=== PATIENT | female | born 1990 | race Caucasian/White ===

== ENCOUNTER 2016-08-07 18:20 | Emergency (ER) | payer MEDICAID ==
[~2016-08-07] VITALS: Ht 157.5 cm; Wt 77.1 kg
[2016-08-07 19:22] VITALS: BP 110/66
[2016-08-07 20:01] LABS: BASOPHILS % (AUTO) 1.2 % (0.0-2.0); EOSINOPHILS # (AUTO) 0.1 K/uL (0-0.4); EOSINOPHILS % (AUTO) 1.4 % (0.0-4.0); HEMATOCRIT 39.7 % (36-48); HEMOGLOBIN 13.2 g/dL (12.0-16.0); LYMPHOCYTES # (AUTO) 0.6 K/uL (2.5-16.5); LYMPHOCYTES % (AUTO) 13.9 % (20.5-51.1); MEAN CORPUSCULAR HEMOGLOBIN 29 pg (27-31); MEAN CORPUSCULAR HGB CONC 33 g/dL (33-37); MEAN CORPUSCULAR VOLUME 88 fL (80-94); MONOCYTES # (AUTO) 0.4 K/uL (0.8-1.0); MONOCYTES % (AUTO) 9.1 % (1.7-9.3); NEUTROPHILS % (AUTO) 74.4 % (42.2-75.2); PLATELET COUNT (AUTO) 180 K/uL (140-450); RED CELL DISTRIBUTION WIDTH 12.3 % (11.6-13.7); WHITE BLOOD COUNT (AUTO) 4.1 K/uL (4.8-10.8)
[2016-08-07 20:04] LABS: APPEARANCE,URINE CLEAR (CLEAR); BILIRUBIN,URINE NEGATIVE (NEGATIVE); BLOOD, URINE TRACE-L (NEGATIVE); COLOR,URINE YELLOW (YELLOW); LEUKOCYTE ESTERASE ,URINE 1+ (NEGATIVE); NITRITE, URINE NEGATIVE (NEGATIVE); PH,URINE 6.5 (5.0-9.0); PROTEIN,URINE NEGATIVE (NEGATIVE); UGLUCOSE NEGATIVE (NEGATIVE); UROBILINOGEN,URINE 0.2 EU/dL (0.2 - 1)
[2016-08-07 20:13] LABS: ANION GAP 10.2 (8-16); CALCIUM 8.7 mg/dL (8.5-10.1); CARBON DIOXIDE 27.5 mmol/L (21-32); CREATININE 0.8 mg/dL (0.6-1.3); POTASSIUM 3.7 mmol/L (3.5-5.1)
[2016-08-07 20:15] LABS: BACTERIA,URINE 3+ /HPF (None Seen); RBC,URINE 0-3 /HPF (0-5)
[2016-08-07 20:19] LABS: ALBUMIN 4.1 g/dL (3.4-5.0); TOTAL BILIRUBIN 0.5 mg/dL (0.0-1.0); TOTAL PROTEIN, SERUM 7.8 g/dL (6.4-8.2)
--- NOTE | 2016-08-07 23:02 | NUR ---
TO ER BED 8
--- NOTE | 2016-08-07 23:03 | NUR ---
26 Y/O HERE W/C/O ABD PAIN , NAUSEA, FEVER AND CHILLS, PAIN WITH URINATION X 5 DAYS. NO S/S OF DISTRESS NOTED AT THE MOMENT ER MD AWARE.
[2016-08-07] MEDS ORDERED: ALUMINUM HYD/MAG/SIMETHICONE 30 ML, BELLADONNA/PHENOBARBITAL 10 ML, LIDOCAINE VISCOUS 2... PO ONE ×3 (23:05)
[2016-08-07] MEDS ORDERED: ONDANSETRON 4 MG ODT PO ONE (23:05)
[2016-08-07] MEDS ORDERED: ALUMINUM HYD/MAG/SIMETHICONE 30 ML UDC ONE (23:13)
[2016-08-07] MEDS ORDERED: LIDOCAINE VISCOUS 2% 20 ML UDC ONE (23:13)
[2016-08-08] MEDS ORDERED: KETOROLAC 60 MG/2 ML VIAL IM ONE (00:05)
[2016-08-08 00:25] VITALS: BP 129/98
--- NOTE | 2016-08-08 00:25 | NUR ---
PER ER MD Patient STABLE FOR discharged with v/s stable. Written and verbal after care instructions given and explained. Patient alert, oriented and verbalized understanding of instructions. Ambulatory with steady gait. All questions addressed prior to discharge. ID band removed. Patient advised to follow up with PMD OR RETURN TO ER IF CONDITION WORSENS. Rx of MOTRIN, CIPRO, AND ZOFRAN given. Patient educated on indication of medication including possible reaction and side effects. Opportunity to ask questions provided and answered.
== END 2016-08-08 00:25 | disposition home or self-care (01) ==
LOC: MED 18:20
DX: N12 Tubulo-interstitial nephritis, not specified as acute or chronic (principal)
CPT/HCPCS: 36415; 80053; 81001; 81025; 83690; 85025; 87086; 87186; 96372; 99284; J1885; S0119

== ENCOUNTER 2016-08-19 19:23 | Emergency (ER) | payer MEDICAID ==
[~2016-08-19] VITALS: Ht 157.5 cm; Wt 77.1 kg
[2016-08-19 19:25] VITALS: BP 132/90
[2016-08-19 21:28] LABS: BASOPHILS # (AUTO) 0.2 K/uL (0.00-0.22); BASOPHILS % (AUTO) 1.7 % (0.0-2.0); EOSINOPHILS # (AUTO) 0.2 K/uL (0-0.4); EOSINOPHILS % (AUTO) 1.6 % (0.0-4.0); HEMATOCRIT 42.3 % (36-48); HEMOGLOBIN 13.8 g/dL (12.0-16.0); LYMPHOCYTES # (AUTO) 0.9 K/uL (2.5-16.5); LYMPHOCYTES % (AUTO) 8.4 % (20.5-51.1); MEAN CORPUSCULAR HEMOGLOBIN 29 pg (27-31); MEAN CORPUSCULAR HGB CONC 33 g/dL (33-37); MEAN CORPUSCULAR VOLUME 88 fL (80-94); MONOCYTES # (AUTO) 0.7 K/uL (0.8-1.0); MONOCYTES % (AUTO) 6.6 % (1.7-9.3); NEUTROPHILS # (AUTO) 8.9 K/uL (1.8-7.7); NEUTROPHILS % (AUTO) 81.7 % (42.2-75.2); PLATELET COUNT (AUTO) 239 K/uL (140-450); RED BLOOD CELL COUNT(AUTO) 4.79 MIL/uL (4.20-5.40); RED CELL DISTRIBUTION WIDTH 12.3 % (11.6-13.7); WHITE BLOOD COUNT (AUTO) 10.9 K/uL (4.8-10.8)
[2016-08-19 21:36] LABS: ANION GAP 11.5 (8-16); CALCIUM 8.8 mg/dL (8.5-10.1); CARBON DIOXIDE 29.5 mmol/L (21-32); CREATININE 1.8 mg/dL (0.6-1.3)
[2016-08-19 21:43] LABS: ALBUMIN 4.2 g/dL (3.4-5.0); TOTAL BILIRUBIN 0.9 mg/dL (0.0-1.0); TOTAL PROTEIN, SERUM 8.1 g/dL (6.4-8.2)
--- NOTE | 2016-08-19 21:45 | NUR ---
PT. AMBULATED TO ER BED 4
--- NOTE | 2016-08-19 22:17 | NUR ---
26Y/F PATIENT PRESENTS TO ED WITH C/O ABDOMINAL PAIN WITH VOMITTINGX 3 DAYS. PT STATES PAIN STARTED 3 DAYS AGO WITH EPISODE OF N/V . DENIES FEVER OR DIARRHEA; SKIN IS PINK/WARM/DRY; AAOX4 WITH EVEN AND STEADY GAIT; LUNGS CLEAR BL; HR EVEN AND REGULAR; PT DENIES ANY FEVER, CP, SOB, OR COUGH AT THIS TIME; PATIENT STATES PAIN OF 10/10 AT THIS TIME; VSS; PATIENT POSITIONED FOR COMFORT; HOB ELEVATED; BEDRAILS UP X2; BED DOWN. ER MD MADE AWARE OF PT STATUS.
--- NOTE | 2016-08-19 22:21 | NUR ---
Dr. Yuan evaluating patient at bedside.
[2016-08-19] MEDS ORDERED: NACL 0.9% 1,000 ML IV ONE (22:35)
[2016-08-19] MEDS ORDERED: DICYCLOMINE HCL LIQUID 20 MG, ALUMINUM HYD/MAG/SIMETHICONE 30 ML, LIDOCAINE VISCOUS 2% ... PO ONE ×3 (22:35)
--- NOTE | 2016-08-20 00:10 | NUR ---
Patient discharged with v/s stable. Written and verbal after care instructions given and explained. Patient alert, oriented and verbalized understanding of instructions. Ambulatory with steady gait. All questions addressed prior to discharge. ID band removed. Patient advised to follow up with PMD. Rx of MYLANTA 200/200/20MG/5ML, BENTYL 20 MG given. Patient educated on indication of medication including possible reaction and side effects. Opportunity to ask questions provided and answered.
[2016-08-20 00:11] VITALS: BP 125/85
== END 2016-08-20 00:10 | disposition home or self-care (01) ==
LOC: MED 19:23
DX: R10.13 Epigastric pain (principal); R11.0 Nausea; R63.0 Anorexia
CPT/HCPCS: 36415; 74176; 80053; 81002; 81025; 83690; 85025; 96360; 99285; J7030

== ENCOUNTER 2017-08-23 20:10 | Emergency (ER) | payer MEDICAID ==
[~2017-08-23] VITALS: Ht 157.5 cm; Wt 76.7 kg
[2017-08-23 20:45] VITALS: BP 109/70
--- NOTE | 2017-08-24 00:40 | NUR ---
Pt evaluated at chairside by Dr. Billingsley for right shoulder pain 12/24. Pt states box fell on her shoulder at home. VSS. CMS intact. A&Ox4. Skin warm and dry. Continue to monitor.
--- NOTE | 2017-08-24 00:40 | NUR ---
PT.AMBULATED TO ER CHB
[2017-08-24] MEDS ORDERED: KETOROLAC 30 MG/ML VIAL IM ONE (00:55)
[2017-08-24 01:05] VITALS: BP 109/70
--- NOTE | 2017-08-24 01:05 | NUR ---
Patient discharged with v/s stable. Written and verbal after care instructions given and explained. Patient alert, oriented and verbalized understanding of instructions. Ambulatory with steady gait. All questions addressed prior to discharge. ID band removed. Patient advised to follow up with PMD. Rx of tylenol and ibuprofen given. Patient educated on indication of medication including possible reaction and side effects. Opportunity to ask questions provided and answered.
== END 2017-08-24 01:05 | disposition home or self-care (01) ==
LOC: MED 20:10
DX: M25.511 Pain in right shoulder (principal)
CPT/HCPCS: 73030; 81025; 96372; 99284; J1885

== ENCOUNTER 2018-10-31 11:59 | Emergency (ER) | payer MEDICAID ==
[~2018-10-31] VITALS: Ht 157.5 cm; Wt 74.4 kg
[2018-10-31 12:15] VITALS: BP 115/68
--- NOTE | 2018-10-31 12:25 | NUR ---
Patient ambulated to bed 5. RN evaluating patient at bedside.
--- NOTE | 2018-10-31 12:28 | NUR ---
Dr. Suazo evaluating patient at bedside.
[2018-10-31] MEDS ORDERED: ONDANSETRON 4 MG ODT PO ONE (12:35)
[2018-10-31] MEDS ORDERED: FAMOTIDINE 20 MG TAB PO ONE (12:35)
--- NOTE | 2018-10-31 12:37 | NUR ---
DR BERNSTEIN BEDSIDE
--- NOTE | 2018-10-31 12:38 | NUR ---
pt states has had burning epigastric pain with belching bloated pain radiating straight back x 3 days ---today pain constant unrelieved with rest loose stools as well
[2018-10-31] MEDS ORDERED: ALUMINUM HYD/MAG/SIMETHICONE 30 ML UDC PO ONE (12:50)
[2018-10-31] MEDS ORDERED: LIDOCAINE VISCOUS 2% 20 ML UDC PO ONE (12:50)
[2018-10-31 13:53] LABS: ANION GAP 11.5 (8-16); CARBON DIOXIDE 28.1 mmol/L (21-32); CREATININE 0.6 mg/dL (0.6-1.3); POTASSIUM 3.6 mmol/L (3.5-5.1)
[2018-10-31 13:59] LABS: ALBUMIN 3.7 g/dL (3.4-5.0); TOTAL BILIRUBIN 0.9 mg/dL (0.0-1.0)
[2018-10-31 15:20] VITALS: BP 111/62
--- NOTE | 2018-10-31 15:21 | NUR ---
Patient discharged with v/s stable. Written and verbal after care instructions given and explained. Patient alert, oriented and verbalized understanding of instructions. Ambulatory with steady gait. All questions addressed prior to discharge. ID band removed. Patient advised to follow up with PMD. Rx of Zofran and Omeprazole given. Pt's symptoms have been improved and has 4/10 epigastric pain. Patient educated on indication of medication including possible reaction and side effects. Opportunity to ask questions provided and answered.
[2018-10-31 17:31] LABS: HEMATOCRIT 35.5 % (36-48); HEMOGLOBIN 12.1 g/dL (12.0-16.0); MEAN CORPUSCULAR HEMOGLOBIN 31 pg (27-31); MEAN CORPUSCULAR HGB CONC 34 g/dL (33-37); MEAN CORPUSCULAR VOLUME 91.9 fL (80-94); PLATELET COUNT (AUTO) 168 K/uL (140-450); RED BLOOD CELL COUNT(AUTO) 3.87 MIL/uL (4.20-5.40); WHITE BLOOD COUNT (AUTO) 6.3 K/uL (4.8-10.8)
[2018-10-31 17:32] LABS: BASOPHILS % (AUTO) 0.3 % (0.0-2.0); EOSINOPHILS % (AUTO) 0.4 % (0.0-4.0); LYMPHOCYTES # (AUTO) 0.4 K/uL (2.5-16.5); LYMPHOCYTES % (AUTO) 6.5 % (20.5-51.1); MONOCYTES # (AUTO) 0.2 K/uL (0.8-1.0); NEUTROPHILS # (AUTO) 5.6 K/uL (1.8-7.7); NEUTROPHILS % (AUTO) 89.8 % (42.2-75.2)
== END 2018-10-31 15:21 | disposition home or self-care (01) ==
LOC: MED 11:59
DX: K21.9 Gastro-esophageal reflux disease without esophagitis (principal); Z90.49 Acquired absence of other specified parts of digestive tract
CPT/HCPCS: 36415; 80053; 81002; 81025; 83690; 85025; 99284; Q0162

== ENCOUNTER 2019-02-01 14:45 | Emergency (ER) | payer MEDICAID ==
[~2019-02-01] VITALS: Ht 188 cm; Wt 74.4 kg
[2019-02-01 14:54] VITALS: BP 115/81
--- NOTE | 2019-02-01 15:03 | NUR ---
PATIENT AMBULATED TO BED 6.
--- NOTE | 2019-02-01 15:13 | NUR ---
C/O ABD PAIN AND +N/V/D X 1 WEEK. BOWEL SOUNDS ACTIVE IN ALL 4 QUADRANTS. ABDOMEN SOFT AND ROUND. VSS AT THIS TIME. AA0X4. BED IS DOWN, LOCKED, BED RAIL X 1, ERMD TO SEE PT. PMH- DENIES
--- NOTE | 2019-02-01 15:15 | NUR ---
LABS DRAWN BEDSIDE
--- NOTE | 2019-02-01 16:40 | NUR ---
NEGAR BLOUNT AT BEDSIDE
[2019-02-01 16:41] LABS: BASOPHILS % (AUTO) 0.5 % (0.0-2.0); EOSINOPHILS # (AUTO) 0.1 K/uL (0-0.4); EOSINOPHILS % (AUTO) 1.1 % (0.0-4.0); HEMATOCRIT 37.8 % (36-48); HEMOGLOBIN 12.7 g/dL (12.0-16.0); LYMPHOCYTES # (AUTO) 1.5 K/uL (2.5-16.5); LYMPHOCYTES % (AUTO) 23.3 % (20.5-51.1); MEAN CORPUSCULAR HEMOGLOBIN 31 pg (27-31); MEAN CORPUSCULAR HGB CONC 34 g/dL (33-37); MONOCYTES # (AUTO) 0.3 K/uL (0.8-1.0); MONOCYTES % (AUTO) 4.8 % (1.7-9.3); NEUTROPHILS # (AUTO) 4.6 K/uL (1.8-7.7); NEUTROPHILS % (AUTO) 70.3 % (42.2-75.2); PLATELET COUNT (AUTO) 216 K/uL (140-450); RED BLOOD CELL COUNT(AUTO) 4.15 MIL/uL (4.20-5.40); WHITE BLOOD COUNT (AUTO) 6.6 K/uL (4.8-10.8)
[2019-02-01] MEDS ORDERED: KETOROLAC 30 MG/ML VIAL IVP ONE (16:45)
[2019-02-01] MEDS ORDERED: ONDANSETRON 4 MG/2 ML VIAL IVP ONE (16:45)
[2019-02-01] MEDS ORDERED: NACL 0.9% 1,000 ML IV ONE (16:45)
[2019-02-01 16:50] LABS: ANION GAP 11.9 (8-16); CARBON DIOXIDE 27.7 mmol/L (21-32); CREATININE 0.7 mg/dL (0.6-1.3); POTASSIUM 3.6 mmol/L (3.5-5.1)
[2019-02-01 16:54] LABS: ALBUMIN 3.9 g/dL (3.4-5.0); TOTAL BILIRUBIN 0.4 mg/dL (0.0-1.0)
--- NOTE | 2019-02-01 17:02 | NUR ---
VSS AT THIS TIME. AA0X4
[2019-02-01] MEDS ORDERED: ACETAMINOPHEN EXTRA STRENGTH 500 MG TAB PO ONE (17:45)
[2019-02-01 18:30] VITALS: BP 111/61
--- NOTE | 2019-02-01 18:32 | NUR ---
Patient discharged with v/s stable. Written and verbal after care instructions given and explained. Patient alert, oriented and verbalized understanding of instructions. Ambulatory with steady gait. All questions addressed prior to discharge. ID band removed. Patient advised to follow up with PMD. Rx of ZOFRAN,ACETAMINOPHEN given. Patient educated on indication of medication including possible reaction and side effects. Opportunity to ask questions provided and answered.
== END 2019-02-01 18:32 | disposition home or self-care (01) ==
LOC: MED 14:45
DX: A08.4 Viral intestinal infection, unspecified (principal); G44.209 Tension-type headache, unspecified, not intractable; Z90.49 Acquired absence of other specified parts of digestive tract
CPT/HCPCS: 36415; 80053; 81002; 81025; 83690; 84703; 85025; 96361; 96374; 96375; 99283; J1885; J2405; J7030

== ENCOUNTER 2019-07-21 13:45 | Emergency (ER) | payer OTHER, MEDICAID ==
[~2019-07-21] VITALS: Ht 157.5 cm; Wt 73.5 kg
[2019-07-21 14:05] VITALS: BP 127/73
--- NOTE | 2019-07-21 15:05 | NUR ---
28 y/f presents to ed with c/o dysuria and pimple on inner labia with white discharge x 3 day. pt reports 8/10 burning pain. Pt reports chills, denies fever. a&o x 4, rr even and unlabored, skin warm and dry to touch, lungs clear, abdomen soft, nondistended. pmh- denies nkda
[2019-07-21] MEDS ORDERED: KETOROLAC 60 MG/2 ML VIAL IM ONE (15:50)
--- NOTE | 2019-07-21 16:27 | NUR ---
Patient discharged with v/s stable. Written and verbal after care instructions given and explained. Patient alert, oriented and verbalized understanding of instructions. Ambulatory with steady gait. All questions addressed prior to discharge. ID band removed. Patient advised to follow up with PMD. Rx of KEFLEX, MOTRIN, AND PYRIDIUM given. Patient educated on indication of medication including possible reaction and side effects. Opportunity to ask questions provided and answered.
[2019-07-21 16:28] VITALS: BP 114/48
== END 2019-07-21 16:27 | disposition home or self-care (01) ==
LOC: MED 13:45
DX: N39.0 Urinary tract infection, site not specified (principal); N76.2 Acute vulvitis; Z98.890 Other specified postprocedural states
CPT/HCPCS: 81002; 81025; 96372; 99283; J1885

== ENCOUNTER 2021-03-17 13:44 | Emergency (ER) | payer MEDICAID, OTHER ==
[~2021-03-17] VITALS: Ht 157.5 cm; Wt 81.6 kg
[2021-03-17 14:00] VITALS: BP 129/66
--- NOTE | 2021-03-17 14:27 | NUR ---
PATIENT AMBULATED TO BED 7.
--- NOTE | 2021-03-17 14:37 | NUR ---
DR CENTENO AT BEDSIDE EXAMINING PT
[2021-03-17] MEDS ORDERED: IBUP-2213 PO (14:46)
[2021-03-17] MEDS ORDERED: ONDA8TAB87 PO (14:46)
[2021-03-17] MEDS ORDERED: ACET-8386 PO (14:46)
--- NOTE | 2021-03-17 15:00 | NUR ---
30 Y/O FEMALE BIB SELF C/O BEVERLY, NECK PAIN , N/V X 1 WEEK. DENIES TRAUMA/INJURY. SKIN IS PINK/WARM/DRY; AAOX4 WITH EVEN AND STEADY GAIT; LUNGS CLEAR BL; HR EVEN AND REGULAR; PT DENIES ANY FEVER, CP, SOB, OR COUGH AT THIS TIME; PATIENT POSITIONED FOR COMFORT; HOB ELEVATED; BEDRAILS UP X2; BED DOWN. PMH:DENIES NKA
[2021-03-17] MEDS: KETOROLAC 60 MG/2 ML VIAL IM ONE (15:15)
[2021-03-17] MEDS: ONDANSETRON 4 MG ODT PO ONE (15:16)
[2021-03-17 15:50] VITALS: BP 129/66
--- NOTE | 2021-03-17 15:50 | NUR ---
Patient discharged with v/s stable. Written and verbal after care instructions given and explained. Patient alert, oriented and verbalized understanding of instructions. Ambulatory with steady gait. All questions addressed prior to discharge. ID band removed. Patient advised to follow up with PMD. Rx of HYDROCODONE/ACETAMINOPHEN, IBUPROFEN, AND ZOFRAN given. Patient educated on indication of medication including possible reaction and side effects. Opportunity to ask questions provided and answered.
== END 2021-03-17 15:50 | disposition home or self-care (01) ==
LOC: MED 13:44
DX: R51.9 Headache, unspecified (principal); R11.0 Nausea; Z79.899 Other long term (current) drug therapy; Z79.1 Long term (current) use of non-steroidal anti-inflammatories (NSAID)
CPT/HCPCS: 96372; 99283; J1885; Q0162; 81002; 81025

== ENCOUNTER 2021-11-07 04:10 | Emergency (ER) | payer MEDICAID ==
[~2021-11-07] VITALS: Ht 157.5 cm; Wt 77.1 kg
[~2021-11-07 04:10] MED LIST: ACET-8386 PO; IBUP-2213 PO; ONDA8TAB87 PO
[2021-11-07 04:15] VITALS: BP 110/54
--- NOTE | 2021-11-07 04:15 | NUR ---
TO BED VIA W/C
--- NOTE | 2021-11-07 04:20 | NUR ---
RECEIVED IN BED 4 WITH C/O LOW BACK PAIN STARTED TODAY DENIES TRAUMA OR HISTORY. IS UNABLE TO GET OUT OF WHEELCHAIR AT THIS TIME AND IS TEARFUL
[2021-11-07] MEDS ORDERED: KETOROLAC 60 MG/2 ML VIAL IM ONE (04:25)
--- NOTE | 2021-11-07 04:35 | NUR ---
TO BR FOR UA
[2021-11-07] MEDS ORDERED: HYDROcodone/APAP 5/325 MG 1 TAB TAB PO ONE (04:55)
--- NOTE | 2021-11-07 05:15 | NUR ---
[facility]
--- NOTE | 2021-11-07 05:34 | NUR ---
RETURNED FROM RADIOLOGY
[2021-11-07] MEDS ORDERED: IBUP-2218 PO (05:41)
[2021-11-07] MEDS ORDERED: CYCL-711 PO (05:41)
[2021-11-07 06:10] VITALS: BP 114/68
--- NOTE | 2021-11-07 06:10 | NUR ---
Patient discharged with v/s stable. Written and verbal after care instructions given and explained. Patient alert, oriented and verbalized understanding of instructions. Ambulatory with to car. All questions addressed prior to discharge. ID band removed. Patient advised to follow up with PMD. Rx of FLEXERIL given. Patient educated on indication of medication including possible reaction and side effects. Opportunity to ask questions provided and answered.
== END 2021-11-07 06:10 | disposition home or self-care (01) ==
LOC: MED 04:10
DX: M54.50 Low back pain, unspecified (principal)
CPT/HCPCS: 72110; 81002; 81025; 96372; 99283; J1885